=== PATIENT | female | born 1995 | race Two or more races ===

== ENCOUNTER 2020-04-15 13:58 | Emergency (ER) | payer OTHER ==
[~2020-04-15] VITALS: Ht 157.5 cm; Wt 71.2 kg
--- NOTE | 2020-04-15 14:10 | NUR ---
ED Nurse Note: Pt was brought in by ambulance from home d/t 1010 abdominal pain with intensity on the RT side below rib going on for 2 weeks and nausea and vomiting x 1 week. Per pt, she was seen multiple times on different facilities for more than a week but the symtoms are not getting any better. Pt is AOx4, VSS, on RA, afebrile on triage. placed on bed.
[2020-04-15] MEDS ORDERED: Lidocaine 2% Visc 15ml soln ORAL ONE (14:15)
[2020-04-15] MEDS ORDERED: Dicyclomine 10mg Cap ORAL ONE (14:15)
[2020-04-15] MEDS ORDERED: Ketorolac 30mg Inj IV ONE (14:15)
[2020-04-15] MEDS ORDERED: Mylanta II UD 30ml ORAL ONE (14:15)
--- NOTE | 2020-04-15 14:16 | Emergency Room Report ---
History of Present Illness General Chief Complaint: Abdominal Pain Source: Patient Present Illness HPI 25-year-old female here with right upper quadrant abdominal pain. Patient says that she has had this pain on and off "for 2 years." She says that it has acutely worsened over the past several weeks. Pain is located in the right upper quadrant, sharp in nature, cramping, does not otherwise radiate. She has been to [facility] several times over the past week for this pain for which she has received CTs and ultrasounds and patient told me "1 time it showed sludge, another time it did not show anything." "Nobody can seem to figure out what is going on." Patient says that she has also seen a appeals referee in the past and had an endoscopy that was also negative. Patient says that she was diagnosed with a UTI 2 days ago at [facility] but is not been able to take the antibiotic prescribed due to vomiting. She says that she is vomited several times a day over the past week, nonbilious nonbloody. No fevers, chills, chest pain, palpitation, shortness of breath, back pain, diarrhea, dysuria, hematuria, hematochezia, melena. Says that she is sexually active with her . Denies vaginal discharge or vaginal bleeding says has not had any dysuria. Not sexually active with any other partner. 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 Patient History Last Menstrual Period: unk Nursing Documentation-PMH Hx Cardiac Problems: No Hx Hypertension: No Hx Pacemaker: No Hx Asthma: No Hx COPD: No Hx Diabetes: No Hx Cancer: No Hx Gastrointestinal Problems: Yes - Gastritis Hx Dialysis: No History Of Psychiatric Problem: No Hx Neurological Problems: No Hx Cerebrovascular Accident: No Hx Seizures: No Review of Systems All Other Systems: negative except mentioned in HPI Physical Exam Vital Signs Date Time Temp Pulse Resp B/P (MAP) Pulse Ox O2 Delivery O2 Flow Rate FiO2 04/15/20 14:00 98.4 85 19 112/69 (83) 97 Room Air Sp02 EP Interpretation: reviewed, normal General Appearance: no apparent distress, alert, GCS 15, non-toxic Head: normocephalic, atraumatic Eyes: bilateral eye normal inspection, bilateral eye PERRL ENT: hearing grossly normal, normal pharynx, no angioedema, normal voice Neck: full range of motion, supple/symm/no masses Respiratory: chest non-tender, lungs clear, normal breath sounds, speaking full sentences Cardiovascular #1: regular rate, rhythm, no edema Cardiovascular #2: 2+ carotid (R), 2+ carotid (L), 2+ radial (R), 2+ radial (L) , 2+ dorsalis pedis (R), 2+ dorsalis pedis (L) Gastrointestinal: normal bowel sounds, soft, non-distended, no guarding, no rebound, other - Mild right upper quadrant tenderness on palpation. Positive Hudson sign. Negative Rovsing sign. No distention or guarding. Non-tympanic. No other abdominal pain Rectal: deferred Genitourinary: normal inspection, no CVA tenderness Musculoskeletal: back normal, normal range of motion, calf tenderness, gait/ station normal, non-tender Neurologic: alert, motor strength/tone normal, oriented x3, sensory intact, responsive, speech normal Psychiatric: judgement/insight normal, memory normal, mood/affect normal, no suicidal/homicidal ideation Reflexes: 3+ bicep (R), 3+ bicep (L), 3+ tricep (R), 3+ tricep (L), 3+ knee (R) , 3+ knee (L) Lymphatic: no adenopathy Medical Decision Making Diagnostic Impression: Primary Impression: Abdominal pain ER Course Laboratory Tests Test 04/15/20 14:20 White Blood Count 11.8 K/UL (4.8-10.8) H Red Blood Count 4.88 M/UL (4.20-5.40) Hemoglobin 15.4 G/DL (12.0-16.0) Hematocrit 44.3 % (37.0-47.0) Mean Corpuscular Volume 91 FL (80-99) Mean Corpuscular Hemoglobin 31.5 PG (27.0-31.0) H Mean Corpuscular Hemoglobin Concent 34.8 G/DL (32.0-36.0) Red Cell Distribution Width 10.8 % (11.6-14.8) L Platelet Count 358 K/UL (150-450) Mean Platelet Volume 6.1 FL (6.5-10.1) L Neutrophils (%) (Auto) 76.9 % (45.0-75.0) H Lymphocytes (%) (Auto) 14.9 % (20.0-45.0) L Monocytes (%) (Auto) 6.0 % (1.0-10.0) Eosinophils (%) (Auto) 0.0 % (0.0-3.0) Basophils (%) (Auto) 2.2 % (0.0-2.0) H Urine Color Yellow Urine Appearance Slightly cloudy Urine pH 6 (4.5-8.0) Urine Specific [place] 1.025 (1.005-1.035) Urine Protein 2+ (NEGATIVE) H Urine Glucose (UA) Negative (NEGATIVE) Urine Ketones 4+ (NEGATIVE) H Urine Blood 1+ (NEGATIVE) H Urine Nitrite Negative (NEGATIVE) Urine Bilirubin Negative (NEGATIVE) Urine Urobilinogen 1 MG/DL (0.0-1.0) H Urine Leukocyte Esterase 2+ (NEGATIVE) H Urine RBC 0-2 /HPF (0 - 2) Urine WBC 2-4 /HPF (0 - 2) Urine Squamous Epithelial Cells Moderate /LPF (NONE/OCC) H Urine Bacteria Few /HPF (NONE) Urine HCG, Qualitative Negative (NEGATIVE) Sodium Level 136 MMOL/L (136-145) Potassium Level 3.7 MMOL/L (3.5-5.1) Chloride Level 99 MMOL/L (98-107) Carbon Dioxide Level 23 MMOL/L (21-32) Anion Gap 14 mmol/L (5-15) Blood Urea Nitrogen 10 mg/dL (7-18) Creatinine 0.7 MG/DL (0.55-1.30) Estimated Glomerular Filtration Rate > 60 mL/min (>60) Glucose Level 98 MG/DL (74-106) Calcium Level 9.2 MG/DL (8.5-10.1) Total Bilirubin 0.9 MG/DL (0.2-1.0) Aspartate Amino Transferase (AST) 11 U/L (15-37) L Alanine Aminotransferase (ALT) 17 U/L (12-78) Alkaline Phosphatase 58 U/L (46-116) Total Protein 8.1 G/DL (6.4-8.2) Albumin 4.3 G/DL (3.4-5.0) Globulin 3.8 g/dL Albumin/Globulin Ratio 1.1 (1.0-2.7) Lipase 94 U/L (73-393) Procedure: US ABD Complete Indication: Reason For Exam: PAIN Technique: Whalen-scale and duplex images of the upper abdomen were obtained Comparison: Findings: Gallbladder is unremarkable, without stones, wall thickening, nor pericholecystic fluid. Sonographic Hudson's sign is negative. Common bile duct measures to mm in diameter. No intrahepatic biliary ductal dilatation. Liver demonstrates normal echogenicity, no focal abnormality. Portal vein and hepatic veins are patent. Pancreas is unremarkable. Spleen is unremarkable. Left kidney measures 11.8 cm in length. Right kidney measures 11.6 cm length. Both kidneys demonstrate normal echogenicity. There is no hydronephrosis. No focal abnormality . Non-aneurysmal abdominal aorta . Impression: Negative Ddx: Hernia, bladder or kidney stones, diverticulitis, enteritis, appendicitis, genital pathology 25-year-old female with history of chronic abdominal pain here with right upper quadrant abdominal pain. Patient was hemodynamically stable in the emergency department and had completely normal vital signs. She was nontoxic-appearing. Right upper quadrant ultrasound did not reveal any acute abnormalities. CBC, CMP unremarkable. Lipase negative. Patient was given several doses of pain medication with good resolution of her pain. Patient had been seen at [facility] several times over the past week and received a CT scan which the patient said was completely unremarkable. Urinalysis revealed evidence of infection. Patient was given 1 dose of ceftriaxone in the emergency department. She was given prescription for doxycycline as UTI versus other pathology such as Dago-Scot[place] Kevin syndrome or PID were on the differential diagnosis. Patient refused pelvic exam she will follow-up with her primary care physician. She also has a appeals referee who was recently performed an endoscopy and colonoscopy which the patient claims were negative. She will reach out to that physician as well. Discharged in stable condition. Last Vital Signs Date Time Temp Pulse Resp B/P (MAP) Pulse Ox O2 Delivery O2 Flow Rate FiO2 04/15/20 14:00 98.4 85 19 112/69 (83) 97 Room Air Scripts Dicyclomine Hcl (DICYCLOMINE HCL) 20 Mg Tablet 20 MG PO BID, #10 TAB Prov: Buck Guaman M.D. 04/15/20 Metoclopramide Hcl* (REGLAN*) 10 Mg Tablet 10 MG ORAL THREE TIMES A DAY, #21 TAB Prov: Buck Guaman M.D. 04/15/20 Doxycycline Monohydrate* (DOXYCYCLINE MONOHYDRATE*) 100 Mg Capsule 100 MG ORAL Q12H, #14 CAP 0 Refills Prov: Buck Guaman M.D. 04/15/20 Buck Guaman M.D. Apr 15, 2020 14:16
--- NOTE | 2020-04-15 14:34 | NUR ---
ED Nurse Note: us tech at bedside.
[2020-04-15 14:36] VITALS: BP 112/69
[2020-04-15 14:42] LABS: APPEARANCE,URINE SLIGHTLY CLOUDY; BILIRUBIN, URINE NEGATIVE (NEGATIVE); GLUCOSE, URINE (UA) NEGATIVE (NEGATIVE); KETONES,URINE 4+ (NEGATIVE); LEUKOCYTE ESTERASE ,URINE 2+ (NEGATIVE); NITRITE,URINE NEGATIVE (NEGATIVE); PH,URINE 6 (4.5-8.0); PROTEIN,URINE 2+ (NEGATIVE); UROBILINOGEN,URINE 1 MG/DL (0.0-1.0)
[2020-04-15 14:44] LABS: COLOR,URINE YELLOW
[2020-04-15 14:49] LABS: BASOPHILS % (AUTO) 2.2 % (0.0-2.0); HEMATOCRIT 44.3 % (37.0-47.0); HEMOGLOBIN 15.4 G/DL (12.0-16.0); LYMPHOCYTES % (AUTO) 14.9 % (20.0-45.0); MEAN CORPUSCULAR VOLUME 91 FL (80-99); NEUTROPHILS % (AUTO) 76.9 % (45.0-75.0); PLATELET COUNT 358 K/UL (150-450); RED BLOOD COUNT 4.88 M/UL (4.20-5.40); RED CELL DISTRIBUTION WIDTH 10.8 % (11.6-14.8); WHITE BLOOD COUNT 11.8 K/UL (4.8-10.8)
[2020-04-15 15:00] LABS: ANION GAP 14 mmol/L (5-15); BLOOD UREA NITROGEN 10 mg/dL (7-18); CALCIUM 9.2 MG/DL (8.5-10.1); CARBON DIOXIDE 23 MMOL/L (21-32); CHLORIDE 99 MMOL/L (98-107); CREATININE 0.7 MG/DL (0.55-1.30); POTASSIUM 3.7 MMOL/L (3.5-5.1); SODIUM 136 MMOL/L (136-145)
[2020-04-15] MEDS ORDERED: cefTRIAXone 1 GM in NS 55 ML IVPB ONE (15:00)
[2020-04-15 15:05] LABS: ALANINE AMINOTRANSFERASE 17 U/L (12-78); ALBUMIN 4.3 G/DL (3.4-5.0); ALBUMIN/GLOBULIN RATIO 1.1 (1.0-2.7); ALKALINE PHOSPHATASE 58 U/L (46-116); ASPARTATE AMINO TRANSFERASE 11 U/L (15-37); BILIRUBIN,TOTAL 0.9 MG/DL (0.2-1.0)
[2020-04-15] MEDS ORDERED: Morphine Sulfate 4mg/ml Inj (IV USE ONLY) IVP ONE (15:15)
--- NOTE | 2020-04-15 16:00 | Diagnostic Imaging Report ---
Indication: Reason For Exam: PAIN Technique: Whalen-scale and duplex images of the upper abdomen were obtained Comparison: Findings: Gallbladder is unremarkable, without stones, wall thickening, nor pericholecystic fluid. Sonographic Hudson's sign is negative. Common bile duct measures to mm in diameter. No intrahepatic biliary ductal dilatation. Liver demonstrates normal echogenicity, no focal abnormality. Portal vein and hepatic veins are patent. Pancreas is unremarkable. Spleen is unremarkable. Left kidney measures 11.8 cm in length. Right kidney measures 11.6 cm length. Both kidneys demonstrate normal echogenicity. There is no hydronephrosis. No focal abnormality . Non-aneurysmal abdominal aorta . Impression: Negative
[2020-04-15] MEDS ORDERED: DOXYCYCLINE MO100 MG ORAL (16:09)
[2020-04-15] MEDS ORDERED: DICYCLOMINE HCL20 M1 PO (16:09)
[2020-04-15] MEDS ORDERED: REGLAN10 MG ORAL (16:09)
[2020-04-15 16:24] VITALS: BP 114/72
--- NOTE | 2020-04-15 16:24 | NUR ---
ER DISCHARGE NOTE: Patient is cleared to be discharged per ERMD, pt is aox4, on room air, with stable vital signs. pt was given dc and prescription instructions, pt was able to verbalize understanding, pt id band and iv site removed without complications. pt is able to ambulate with steady gait. pt took all belongings.
[2020-04-16] MEDS ORDERED: MYLANTA MAXIMU355 ML PO (06:50)
[2020-04-16] MEDS ORDERED: TYLENOL325 MG ORAL (06:50)
[2020-04-16] MEDS ORDERED: FAMOTIDINE20 MG ORAL (06:50)
[2020-04-17] MEDS ORDERED: HYDROCODON-ACE1 EA15 ORAL (23:44)
== END 2020-04-15 16:24 | disposition home or self-care (01) ==
LOC: EDBD 13:58 → EMR 14:15
DX: R10.11 Right upper quadrant pain (principal)
CPT/HCPCS: 36415; 76700; 80053; 81003; 81025; 83690; 85025; 96365; 96375; J0696; J1885; J2270; J2405; Z7502; 99284

== ENCOUNTER 2020-06-22 11:43 | Emergency (ER) | payer OTHER ==
[~2020-06-22] VITALS: Ht 157.5 cm; Wt 70.8 kg
[~2020-06-22 11:43] MED LIST: DICYCLOMINE HCL20 M1 PO; DOXYCYCLINE MO100 MG ORAL; FAMOTIDINE20 MG ORAL; HYDROCODON-ACE1 EA15 ORAL; MYLANTA MAXIMU355 ML PO; REGLAN10 MG ORAL; TYLENOL325 MG ORAL
[2020-06-22 11:51] VITALS: BP 136/76
[2020-06-22] MEDS ORDERED: Morphine Sulfate 4mg/ml Inj (IV USE ONLY) IVP ONE ×4 (12:15→16:45)
[2020-06-22 12:38] LABS: APPEARANCE,URINE VERY CLOUDY; BILIRUBIN, URINE NEGATIVE (NEGATIVE); GLUCOSE, URINE (UA) NEGATIVE (NEGATIVE); NITRITE,URINE NEGATIVE (NEGATIVE); PH,URINE 5 (4.5-8.0); UROBILINOGEN,URINE NORMAL MG/DL (0.0-1.0)
[2020-06-22 12:43] LABS: HEMATOCRIT 41.2 % (37.0-47.0); HEMOGLOBIN 14.1 G/DL (12.0-16.0); MEAN CORPUSCULAR VOLUME 93 FL (80-99); PLATELET COUNT 409 K/UL (150-450); RED BLOOD COUNT 4.45 M/UL (4.20-5.40); RED CELL DISTRIBUTION WIDTH 11.6 % (11.6-14.8); WHITE BLOOD COUNT 11.7 K/UL (4.8-10.8)
[2020-06-22 12:47] LABS: ANION GAP 12 mmol/L (5-15); BLOOD UREA NITROGEN 10 mg/dL (7-18); CARBON DIOXIDE 23 MMOL/L (21-32); CHLORIDE 104 MMOL/L (98-107); CREATININE 0.7 MG/DL (0.55-1.30); POTASSIUM 3.6 MMOL/L (3.5-5.1); SODIUM 139 MMOL/L (136-145)
[2020-06-22 12:52] LABS: ALANINE AMINOTRANSFERASE 14 U/L (12-78); ALBUMIN 4.5 G/DL (3.4-5.0); ALBUMIN/GLOBULIN RATIO 1.2 (1.0-2.7); ALKALINE PHOSPHATASE 55 U/L (46-116); ASPARTATE AMINO TRANSFERASE 14 U/L (15-37); BILIRUBIN,TOTAL 0.8 MG/DL (0.2-1.0)
[2020-06-22 12:55] LABS: COLOR,URINE YELLOW; KETONES,URINE 1+ (NEGATIVE); LEUKOCYTE ESTERASE ,URINE 1+ (NEGATIVE); PROTEIN,URINE 1+ (NEGATIVE)
[2020-06-22] MEDS ORDERED: Ketorolac 30mg Inj IV ONE (13:00)
[2020-06-22] MEDS ORDERED: HYDROmorphone 1mg/ml Carpuject IVP ONE ×2 (13:45→14:45)
[2020-06-22 13:46] VITALS: BP 129/74
--- NOTE | 2020-06-22 14:59 | Emergency Room Report ---
History of Present Illness General Chief Complaint: Abdominal Pain Source: Patient Present Illness HPI 25 old female presents for abdominal pain and vomiting. States she has been having this pain on and off for several months now. Does not know why. Has seen multiple specialist. Was seen here numerous times in March for this. Pain is epigastric/right-sided, sharp, 10 out of 10, nonradiating. Notes mult iple episodes of vomiting. Denies chest pain or shortness of breath. States she has had EGD done and swallow studies done which were inconclusive. No other aggravating relieving factors. 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 COVID-19 Screening: Negative COVID-19 COVID-19 Testing Source: [place] Patient History Past Medical History: GERD Past Surgical History: none Pertinent Family History: none Social History: Denies: smoking, alcohol use, drug use Last Menstrual Period: 05/05/20 Now: No Immunizations: UTD Reviewed Nursing Documentation: PMH: Agreed; PSxH: Agreed Nursing Documentation-PMH Hx Cardiac Problems: No Hx Hypertension: No Hx Pacemaker: No Hx Asthma: No Hx COPD: No Hx Diabetes: No Hx Cancer: No Hx Gastrointestinal Problems: Yes - gastritis Hx Dialysis: No Hx Neurological Problems: No Hx Cerebrovascular Accident: No Hx Seizures: No Review of Systems All Other Systems: negative except mentioned in HPI Physical Exam Vital Signs Date Time Temp Pulse Resp B/P (MAP) Pulse Ox O2 Delivery O2 Flow Rate FiO2 06/22/20 11:51 80 19 Room Air 06/22/20 11:51 98.4 136/76 (96) 95 Sp02 EP Interpretation: reviewed, normal General Appearance: alert, GCS 15, non-toxic, mild distress Head: normocephalic, atraumatic Eyes: bilateral eye normal inspection, bilateral eye PERRL ENT: hearing grossly normal, normal pharynx, no angioedema, normal voice Neck: full range of motion, supple/symm/no masses Respiratory: chest non-tender, lungs clear, normal breath sounds, speaking full sentences Cardiovascular #1: regular rate, rhythm, no edema Cardiovascular #2: 2+ carotid (R), 2+ carotid (L), 2+ radial (R), 2+ radial (L), 2+ dorsalis pedis (R), 2+ dorsalis pedis (L) Gastrointestinal: normal bowel sounds, soft, non-distended, no guarding, no rebound, tenderness Rectal: deferred Genitourinary: normal inspection, no CVA tenderness Musculoskeletal: back normal, normal range of motion, gait/station normal, non- tender Neurologic: alert, motor strength/tone normal, oriented x3, sensory intact, responsive, speech normal Psychiatric: judgement/insight normal, memory normal, mood/affect normal, no suicidal/homicidal ideation Reflexes: 3+ bicep (R), 3+ bicep (L), 3+ tricep (R), 3+ tricep (L), 3+ knee (R), 3+ knee (L) Skin: no rash Lymphatic: no adenopathy Medical Decision Making Diagnostic Impression: Primary Impression: Intractable abdominal pain ER Course Hospital Course 25-year-old female presents with right upper quadrant pain and vomiting Differential diagnoses include: BPH, cystitis, pyelonephritis, kidney stone Clinical course Patient placed on stretcher. school bus monitor. After initial history and physical I ordered labs, IV fluids, UA, pain medication and ABD US Labs - minimal leukocytosis, Hb/Hct stable. electrolytes ok. UA negative. UDS positive THC Ultrasound shows no acute process Continues to have pain. Pain not resolved after Toradol, morphine x2, Dilaudid x2. I believe patient will require admission Because of insurance patient will be transferred I feel this is a highly complex case requiring extensive working including EKG/Rhythm strip, Xray/CT/US, Blood/urine lab work, repeat exams while in ED, and administration of strong opiates/narcotics for pain control, admission to hospital or close patient follow up. Diagnosis - intractable abd pain Patient transferred in serious condition Laboratory Tests Test 06/22/20 12:00 06/22/20 12:11 Urine Color Yellow Urine Appearance Very cloudy Urine pH 5 (4.5-8.0) Urine Specific [place] 1.020 (1.005-1.035) Urine Protein 1+ (NEGATIVE) H Urine Glucose (UA) Negative (NEGATIVE) Urine Ketones 1+ (NEGATIVE) H Urine Blood 1+ (NEGATIVE) H Urine Nitrite Negative (NEGATIVE) Urine Bilirubin Negative (NEGATIVE) Urine Urobilinogen Normal MG/DL (0.0-1.0) Urine Leukocyte Esterase 1+ (NEGATIVE) H Urine RBC 0-2 /HPF (0 - 2) Urine WBC 0-2 /HPF (0 - 2) Urine Squamous Epithelial Cells Few /LPF (NONE/OCC) Urine Amorphous Sediment Many /LPF (NONE) H Urine Bacteria Few /HPF (NONE) Urine HCG, Qualitative Negative (NEGATIVE) Urine Opiates Screen Negative (NEGATIVE) Urine Barbiturates Screen Negative (NEGATIVE) Phencyclidine (PCP) Screen Negative (NEGATIVE) Urine Amphetamines Screen Negative (NEGATIVE) Urine Benzodiazepines Screen Negative (NEGATIVE) Urine Cocaine Screen Negative (NEGATIVE) Urine Marijuana (THC) Screen Positive (NEGATIVE) H White Blood Count 11.7 K/UL (4.8-10.8) H Red Blood Count 4.45 M/UL (4.20-5.40) Hemoglobin 14.1 G/DL (12.0-16.0) Hematocrit 41.2 % (37.0-47.0) Mean Corpuscular Volume 93 FL (80-99) Mean Corpuscular Hemoglobin 31.7 PG (27.0-31.0) H Mean Corpuscular Hemoglobin Concent 34.2 G/DL (32.0-36.0) Red Cell Distribution Width 11.6 % (11.6-14.8) Platelet Count 409 K/UL (150-450) Mean Platelet Volume 6.3 FL (6.5-10.1) L Neutrophils (%) (Auto) % (45.0-75.0) Lymphocytes (%) (Auto) % (20.0-45.0) Monocytes (%) (Auto) % (1.0-10.0) Eosinophils (%) (Auto) % (0.0-3.0) Basophils (%) (Auto) % (0.0-2.0) Differential Total Cells Counted 100 Neutrophils % (Manual) 86 % (45-75) H Lymphocytes % (Manual) 11 % (20-45) L Monocytes % (Manual) 3 % (1-10) Eosinophils % (Manual) 0 % (0-3) Basophils % (Manual) 0 % (0-2) Band Neutrophils 0 % (0-8) Platelet Estimate Adequate Platelet Morphology Normal Red Blood Cell Morphology Normal Sodium Level 139 MMOL/L (136-145) Potassium Level 3.6 MMOL/L (3.5-5.1) Chloride Level 104 MMOL/L (98-107) Carbon Dioxide Level 23 MMOL/L (21-32) Anion Gap 12 mmol/L (5-15) Blood Urea Nitrogen 10 mg/dL (7-18) Creatinine 0.7 MG/DL (0.55-1.30) Estimat Glomerular Filtration Rate > 60 mL/min (>60) Glucose Level 120 MG/DL (74-106) H Calcium Level 9.0 MG/DL (8.5-10.1) Total Bilirubin 0.8 MG/DL (0.2-1.0) Aspartate Amino Transf (AST/SGOT) 14 U/L (15-37) L Alanine Aminotransferase (ALT/SGPT) 14 U/L (12-78) Alkaline Phosphatase 55 U/L (46-116) Total Protein 8.3 G/DL (6.4-8.2) H Albumin 4.5 G/DL (3.4-5.0) Globulin 3.8 g/dL Albumin/Globulin Ratio 1.2 (1.0-2.7) Lipase 59 U/L (73-393) L CT/MRI/US Diagnostic Results CT/MRI/US Diagnostic Results : Imaging Test Ordered: Abd US Impression Procedure: US ABD Complete Indication: Abdominal pain, vomiting, leukocytosis Technique: Whalen-scale and duplex images of the upper abdomen were obtained Comparison: 04/15/2020 Findings: Gallbladder is unremarkable, without stones, wall thickening, nor pericholecystic fluid. Sonographic Hudson's sign is negative. Common bile duct measures 3 mm in diameter. No intrahepatic biliary ductal dilatation. Liver demonstrates normal echogenicity, no focal abnormality. Portal vein and hepatic veins are patent. Pancreas is unremarkable. Spleen is unremarkable. Left kidney measures 11.2 cm in length. Right kidney measures 10.4 cm length. Both kidneys demonstrate normal echogenicity. There is no hydronephrosis. No focal abnormality . Non-aneurysmal abdominal aorta . No significant change Impression: Negative Last Vital Signs Date Time Temp Pulse Resp B/P (MAP) Pulse Ox O2 Delivery O2 Flow Rate FiO2 06/22/20 13:46 98.0 83 16 129/74 98 Room Air Status: improved Disposition: SHORT-TERM HOSP Condition: Serious Referrals: [facility],REFERRING (PCP) Eric Benavides MD Jun 22, 2020 14:59
[2020-06-22 15:45] VITALS: BP 106/71
--- NOTE | 2020-06-22 15:48 | Diagnostic Imaging Report ---
Indication: Abdominal pain, vomiting, leukocytosis Technique: Whalen-scale and duplex images of the upper abdomen were obtained Comparison: 04/15/2020 Findings: Gallbladder is unremarkable, without stones, wall thickening, nor pericholecystic fluid. Sonographic Hudson's sign is negative. Common bile duct measures 3 mm in diameter. No intrahepatic biliary ductal dilatation. Liver demonstrates normal echogenicity, no focal abnormality. Portal vein and hepatic veins are patent. Pancreas is unremarkable. Spleen is unremarkable. Left kidney measures 11.2 cm in length. Right kidney measures 10.4 cm length. Both kidneys demonstrate normal echogenicity. There is no hydronephrosis. No focal abnormality . Non-aneurysmal abdominal aorta . No significant change Impression: Negative
[2020-06-22 17:47] VITALS: BP 102/68
[2020-06-22 20:05] VITALS: BP 97/81
== END 2020-06-22 20:05 | disposition short-term general hospital (02) ==
LOC: EMR 12:28
DX: R10.13 Epigastric pain (principal); R11.10 Vomiting, unspecified
CPT/HCPCS: 36415; 76700; 80053; 80307; 81003; 81025; 83690; 85007; 85025; 96361; 96374; 96375; 96376; J1170; J1885; J2270; J2405; J7030; S0028; U0002; Z7502; 99285

== ENCOUNTER 2020-06-27 21:23 | Emergency (ER) | payer OTHER ==
[~2020-06-27] VITALS: Ht 157.5 cm; Wt 68.0 kg
[2020-06-27 21:30] VITALS: BP 161/100
--- NOTE | 2020-06-27 21:30 | NUR ---
ED Nurse Note: PT AMBULATED TO ED FROM HOME C/O N/V/D FOR SEVERAL DAYS WITH 10/10 ABDOMINAL PAIN. PT WAS SEEN RECENTLY FOR THE SAME SYMPTOMS, DIAGNOSED WITH IBS. PT IS A&OX4, VSS EXCEPT FOR BP 160/100 R/T PAIN, PT IS ACTIVELY VOMITING.
--- NOTE | 2020-06-27 21:59 | Emergency Room Report ---
History of Present Illness General Chief Complaint: Abdominal Pain Source: Patient Present Illness HPI Disclaimer: Please note that this report is being documented using DRAGON technology. This can lead to erroneous entry secondary to incorrect interpretation by the dictating instrument. HPI: This 25-year-old female with new diagnosis of IBS presenting for evaluation of abdominal pain. Symptoms began this morning. She reports multiple rounds of nonbloody emesis and profuse abdominal cramping. Denies fever or chills. She has been taking Protonix, Bentyl, Tylenol with mild improvement. Also experienced some loose bowel movements this morning but these have resolved. Patient states this is consistent with her prior episodes of abdominal pain which she has presented to this facility multiple times. She has had 2 - gallbladder ultrasounds at this facility and reports a negative HIDA scan at a different facility. Reports recent CT scan at [facility] which was also interpreted as negative. Also states she had an EGD which was negative and follows with acquisitions analyst. Has not had a colonoscopy. History of appendectomy. Denies alcohol, tobacco or drug use. Currently on her menses. PMH: Interval bowel syndrome PSH: Appendectomy Allergies: Denied Social Hx: Denied alcohol, tobacco, drug use. States she quit marijuana months ago Allergies: Coded Allergies: No Known Allergies (Unverified , 04/15/20) COVID-19 Screening Contact w/high risk pt: No Experienced COVID-19 symptoms?: Yes COVID-19 Testing performed RECONDITIONING ASSOCIATE: No Patient History Last Menstrual Period: 06/27/20 Now: No : 1 Para: 0 Nursing Documentation-PMH Hx Cardiac Problems: No Hx Hypertension: No Hx Pacemaker: No Hx Asthma: No Hx COPD: No Hx Diabetes: No Hx Cancer: No Hx Gastrointestinal Problems: Yes - gastritis Hx Dialysis: No Hx Neurological Problems: No Hx Cerebrovascular Accident: No Hx Seizures: No Review of Systems All Other Systems: negative except mentioned in HPI Physical Exam Vital Signs Date Time Temp Pulse Resp B/P (MAP) Pulse Ox O2 Delivery O2 Flow Rate FiO2 06/27/20 21:30 97.3 86 22 161/100 (120) 96 Room Air General: Awake and alert, appears uncomfortable, vomit bag with clear emesis at bedside HEENT: NC/AT. EOMI. Cardiovascular: RRR. S1 and S2 normal. No murmur appreciated Resp: Normal work of breathing. No cough, wheezing or crackles appreciated Abdomen: Abdomen is soft, nondistended. Tenderness palpation in the epigastric and right upper quadrant. No guarding. No peritoneal signs. No rebound. Negative Hudson's. No flank tenderness. Skin: Intact. No abrasions, laceration or rash over the exposed skin MSK: Normal tone and bulk. Moving all extremities. No obvious deformity. Neuro: Awake and alert. Mentating appropriately. Medical Decision Making Diagnostic Impression: Primary Impression: Abdominal pain ER Course Is a 25-year-old female presenting for evaluation of abdominal pain. Differential includes was not limited to gastritis, gastroenteritis, pancreatitis, cholecystitis, choledocholithiasis, hepatitis, mesenteric ischemia, dehydration, IBS, cyclic vomiting syndrome, inflammatory bowel disease, nephrolithiasis, UTI, pyelonephritis to name a few. Patient given IV fluids, antacids, antiemetics. Patient initially received morphine but requested more pain medication. She declined a second dose of morphine stating that morphine has been ineffective. She states she is only treated with Dilaudid when she is in the hospital. Patient is tested positive for THC as she has on prior visit. May be cyclic vomiting syndrome. She refused Haldol stating it makes her feel sweaty. Patient also tested positive for opiates. Urine sample was obtained prior to the patient receiving IV morphine here in the ED. May be opiate withdrawal. 0015: Patient found sleeping comfortably in room. No emesis in the ED. Labs returned within normal limits aside for positive results on tox screen for marijuana and opiates. Urinalysis has red cells however the patient is currently on her menses. No findings on CT aside from priorly reported appendectomy. Patient stable for outpatient follow-up. Will discharge when awake. Laboratory Tests Test 06/27/20 22:05 06/27/20 22:30 White Blood Count 9.6 K/UL (4.8-10.8) Red Blood Count 4.47 M/UL (4.20-5.40) Hemoglobin 14.0 G/DL (12.0-16.0) Hematocrit 41.4 % (37.0-47.0) Mean Corpuscular Volume 93 FL (80-99) Mean Corpuscular Hemoglobin 31.3 PG (27.0-31.0) H Mean Corpuscular Hemoglobin Concent 33.7 G/DL (32.0-36.0) Red Cell Distribution Width 11.5 % (11.6-14.8) L Platelet Count 391 K/UL (150-450) Mean Platelet Volume 6.2 FL (6.5-10.1) L Neutrophils (%) (Auto) 65.6 % (45.0-75.0) Lymphocytes (%) (Auto) 27.6 % (20.0-45.0) Monocytes (%) (Auto) 5.1 % (1.0-10.0) Eosinophils (%) (Auto) 0.6 % (0.0-3.0) Basophils (%) (Auto) 1.2 % (0.0-2.0) Sodium Level 143 MMOL/L (136-145) Potassium Level 3.1 MMOL/L (3.5-5.1) L Chloride Level 107 MMOL/L (98-107) Carbon Dioxide Level 22 MMOL/L (21-32) Anion Gap 14 mmol/L (5-15) Blood Urea Nitrogen 7 mg/dL (7-18) Creatinine 0.7 MG/DL (0.55-1.30) Estimated Glomerular Filtration Rate > 60 mL/min (>60) Glucose Level 113 MG/DL (74-106) H Calcium Level 8.8 MG/DL (8.5-10.1) Total Bilirubin 0.3 MG/DL (0.2-1.0) Aspartate Amino Transferase (AST) 12 U/L (15-37) L Alanine Aminotransferase (ALT) 16 U/L (12-78) Alkaline Phosphatase 52 U/L (46-116) Total Protein 8.3 G/DL (6.4-8.2) H Albumin 4.6 G/DL (3.4-5.0) Globulin 3.7 g/dL Albumin/Globulin Ratio 1.2 (1.0-2.7) Lipase 131 U/L (73-393) Serum Alcohol < 3 mg/dL Urine Color Yellow Urine Appearance Slightly cloudy Urine pH 5 (4.5-8.0) Urine Specific [place] 1.025 (1.005-1.035) Urine Protein 1+ (NEGATIVE) H Urine Glucose (UA) Negative (NEGATIVE) Urine Ketones 3+ (NEGATIVE) H Urine Blood 5+ (NEGATIVE) H Urine Nitrite Negative (NEGATIVE) Urine Bilirubin Negative (NEGATIVE) Urine Urobilinogen Normal MG/DL (0.0-1.0) Urine Leukocyte Esterase 1+ (NEGATIVE) H Urine RBC Tntc /HPF (0 - 2) H Urine WBC 2-4 /HPF (0 - 2) Urine Squamous Epithelial Cells Few /LPF (NONE/OCC) Urine Calcium Oxalate Crystals Few /LPF (NONE) Urine Bacteria Few /HPF (NONE) Urine HCG, Qualitative Negative (NEGATIVE) Urine Opiates Screen Positive (NEGATIVE) H Urine Barbiturates Screen Negative (NEGATIVE) Phencyclidine (PCP) Screen Negative (NEGATIVE) Urine Amphetamines Screen Negative (NEGATIVE) Urine Benzodiazepines Screen Negative (NEGATIVE) Urine Cocaine Screen Negative (NEGATIVE) Urine Marijuana (THC) Screen Positive (NEGATIVE) H CT/MRI/US Diagnostic Results CT/MRI/US Diagnostic Results : Impression Final Report EXAM: CT Abdomen and Pelvis With Intravenous Contrast CLINICAL HISTORY: ABD PAIN TECHNIQUE: Axial computed tomography images of the abdomen and pelvis with intravenous contrast. CTDI is 5.90 mGy and DLP is 311.90 mGy-cm. One or more of the following dose reduction techniques were used: automated exposure control, adjustment of the mA and/or kV according to patient size, use of iterative reconstruction technique. COMPARISON: Abdominal ultrasound dated 06/22/2020. FINDINGS: Lung bases: Unremarkable. No mass. No consolidation. ABDOMEN: Liver: Unremarkable. No mass. Gallbladder and bile ducts: Unremarkable. No calcified stones. No ductal dilation. Pancreas: Unremarkable. No mass. No ductal dilation. Spleen: Unremarkable. No splenomegaly. Adrenals: Unremarkable. No mass. Kidneys and ureters: Unremarkable. No solid mass. No hydronephrosis. Stomach and bowel: Unremarkable. No obstruction. No mucosal thickening. PELVIS: Appendix: Surgical clips within the region of the appendix, suggesting prior appendectomy. Bladder: Unremarkable. No mass. Reproductive: Unremarkable as visualized. ABDOMEN and PELVIS: Intraperitoneal space: Unremarkable. No free air. No significant fluid collection. Bones/joints: No acute fracture. No dislocation. Soft tissues: Unremarkable. Vasculature: Unremarkable. No abdominal aortic aneurysm. Lymph nodes: Unremarkable. No enlarged lymph nodes. IMPRESSION: No acute abnormalities of the abdomen and pelvis. Radiologist: Catarino Harry DO Electronically Signed: 06/28/20 00:15 Study ready at 00:05 and initial results transmitted at 00:15 Last Vital Signs Date Time Temp Pulse Resp B/P (MAP) Pulse Ox O2 Delivery O2 Flow Rate FiO2 06/27/20 21:30 97.3 86 22 161/100 (120) 96 Room Air Disposition: HOME, SELF-CARE Condition: Improved Tiago Pinedo MD Jun 27, 2020 21:58
[2020-06-27] MEDS ORDERED: Omnipaque-300 100ml vial INJ PRN (22:00)
[2020-06-27] MEDS ORDERED: Morphine Sulfate 4mg/ml Inj (IV USE ONLY) IVP ONE ×3 (22:00→23:30)
[2020-06-27] MEDS ORDERED: Mylanta II UD 30ml ORAL ONE (22:15)
[2020-06-27] MEDS ORDERED: Dicyclomine HCl 10mg/5ml oral soln ORAL ONE (22:15)
[2020-06-27] MEDS ORDERED: Lidocaine 2% Visc 15ml soln ORAL ONE (22:15)
[2020-06-27 22:28] LABS: BASOPHILS % (AUTO) 1.2 % (0.0-2.0); EOSINOPHILS % (AUTO) 0.6 % (0.0-3.0); HEMATOCRIT 41.4 % (37.0-47.0); LYMPHOCYTES % (AUTO) 27.6 % (20.0-45.0); MEAN CORPUSCULAR VOLUME 93 FL (80-99); MONOCYTES % (AUTO) 5.1 % (1.0-10.0); NEUTROPHILS % (AUTO) 65.6 % (45.0-75.0); PLATELET COUNT 391 K/UL (150-450); RED BLOOD COUNT 4.47 M/UL (4.20-5.40); RED CELL DISTRIBUTION WIDTH 11.5 % (11.6-14.8); WHITE BLOOD COUNT 9.6 K/UL (4.8-10.8)
[2020-06-27 22:33] LABS: ANION GAP 14 mmol/L (5-15); BLOOD UREA NITROGEN 7 mg/dL (7-18); CALCIUM 8.8 MG/DL (8.5-10.1); CARBON DIOXIDE 22 MMOL/L (21-32); CHLORIDE 107 MMOL/L (98-107); CREATININE 0.7 MG/DL (0.55-1.30); POTASSIUM 3.1 MMOL/L (3.5-5.1); SODIUM 143 MMOL/L (136-145)
[2020-06-27 22:37] LABS: ALANINE AMINOTRANSFERASE 16 U/L (12-78); ALBUMIN 4.6 G/DL (3.4-5.0); ALBUMIN/GLOBULIN RATIO 1.2 (1.0-2.7); ALKALINE PHOSPHATASE 52 U/L (46-116); ASPARTATE AMINO TRANSFERASE 12 U/L (15-37); BILIRUBIN,TOTAL 0.3 MG/DL (0.2-1.0)
[2020-06-27 22:44] LABS: APPEARANCE,URINE SLIGHTLY CLOUDY; BILIRUBIN, URINE NEGATIVE (NEGATIVE); GLUCOSE, URINE (UA) NEGATIVE (NEGATIVE); KETONES,URINE 3+ (NEGATIVE); LEUKOCYTE ESTERASE ,URINE 1+ (NEGATIVE); NITRITE,URINE NEGATIVE (NEGATIVE); PH,URINE 5 (4.5-8.0); PROTEIN,URINE 1+ (NEGATIVE); UROBILINOGEN,URINE NORMAL MG/DL (0.0-1.0)
[2020-06-27] MEDS ORDERED: Haloperidol 5mg/ml Inj IM ONE (22:45)
[2020-06-27 22:54] LABS: COLOR,URINE YELLOW
[2020-06-27] MEDS ORDERED: LORazepam Inj 2mg/ml 1ml IV ONE (23:00)
[2020-06-27] MEDS ORDERED: DiphenhydrAMINE 50mg/ml Inj IVP ONE (23:00)
--- NOTE | 2020-06-27 23:32 | NUR ---
ED Nurse Note: Pt to CT
[2020-06-27 23:45] VITALS: BP 135/78
--- NOTE | 2020-06-27 23:45 | NUR ---
ED Nurse Note: Pt back from CT, resting with eyes closed, non-labored breathing.
--- NOTE | 2020-06-28 00:15 | Diagnostic Imaging Report ---
EXAM: CT Abdomen and Pelvis With Intravenous Contrast CLINICAL HISTORY: ABD PAIN TECHNIQUE: Axial computed tomography images of the abdomen and pelvis with intravenous contrast. CTDI is 5.90 mGy and DLP is 311.90 mGy-cm. One or more of the following dose reduction techniques were used: automated exposure control, adjustment of the mA and/or kV according to patient size, use of iterative reconstruction technique. COMPARISON: Abdominal ultrasound dated 06/22/2020. FINDINGS: Lung bases: Unremarkable. No mass. No consolidation. ABDOMEN: Liver: Unremarkable. No mass. Gallbladder and bile ducts: Unremarkable. No calcified stones. No ductal dilation. Pancreas: Unremarkable. No mass. No ductal dilation. Spleen: Unremarkable. No splenomegaly. Adrenals: Unremarkable. No mass. Kidneys and ureters: Unremarkable. No solid mass. No hydronephrosis. Stomach and bowel: Unremarkable. No obstruction. No mucosal thickening. PELVIS: Appendix: Surgical clips within the region of the appendix, suggesting prior appendectomy. Bladder: Unremarkable. No mass. Reproductive: Unremarkable as visualized. ABDOMEN and PELVIS: Intraperitoneal space: Unremarkable. No free air. No significant fluid collection. Bones/joints: No acute fracture. No dislocation. Soft tissues: Unremarkable. Vasculature: Unremarkable. No abdominal aortic aneurysm. Lymph nodes: Unremarkable. No enlarged lymph nodes. IMPRESSION: No acute abnormalities of the abdomen and pelvis.
[2020-06-28 01:10] VITALS: BP 154/90
--- NOTE | 2020-06-28 01:10 | NUR ---
ER DISCHARGE NOTE: Patient is cleared to be discharged per ERMD, pt is aox4, on room air, with stable vital signs. pt was given dc instructions, pt was able to verbalize understanding, pt id band and iv site removed without complications. pt is able to ambulate with steady gait. pt took all belongings.
== END 2020-06-28 01:10 | disposition home or self-care (01) ==
LOC: EMR 22:25
DX: R10.9 Unspecified abdominal pain (principal); Z90.89 Acquired absence of other organs
CPT/HCPCS: 36415; 74177; 80053; 80307; 81003; 81025; 83690; 85025; 96361; 96374; 96375; 96376; G0480; J1200; J2270; J2405; J7030; Q9965; S0028; Z7502; 99284

== ENCOUNTER 2020-06-30 07:40 | Emergency (ER) | payer OTHER ==
[~2020-06-30] VITALS: Ht 157.5 cm; Wt 68.0 kg
[2020-06-30 07:59] VITALS: BP 152/98
--- NOTE | 2020-06-30 08:04 | NUR ---
ED Nurse Note: Patient walked in to ER from home due to RUQ abd pain for over a week. Patient was admitted to [facility] last week and was discharged with meds pantoprazole 40mg and dicyclomine 20mg. States pain is consistent. Patient presented AAO x4, VSS at this time, has even unlabored breathing.
--- NOTE | 2020-06-30 08:14 | Emergency Room Report ---
History of Present Illness General Chief Complaint: Abdominal Pain Source: Patient Present Illness HPI Patient is a 25-year-old female presents for increased generalized abdominal pain. Reports having intermittent crampy abdominal pain. Had recent hospitalization after persistent pain. Had negative CT imaging in the past 1 week. Denies any hematemesis or bloody stools. Has been taking dicyclomine as well as acid blockers. Reports having multiple ER visits since onset of pain. Denies any fever. Had negative coronavirus testing recently. Pain was severe crampy in nature. Denies any pelvic pain or vaginal discharge. Denies being . She was told previously that she had irritable bowel disease possibly. Allergies: Coded Allergies: HALOPERIDOL (Verified Allergy, Unknown, 06/30/20) METOCLOPRAMIDE (Verified Allergy, Unknown, 06/30/20) COVID-19 Screening Contact w/high risk pt: No Experienced COVID-19 symptoms?: No COVID-19 Testing performed INSULATION MANAGER: No Patient History Past Medical History: see triage record Last Menstrual Period: 06/29/20 Now: No Reviewed Nursing Documentation: PMH: Agreed; PSxH: Agreed Nursing Documentation-PMH Past Medical History: No History, Except For Hx Cardiac Problems: No Hx Hypertension: No Hx Pacemaker: No Hx Asthma: No Hx COPD: No Hx Diabetes: No Hx Cancer: No Hx Gastrointestinal Problems: Yes - gastritis Hx Dialysis: No Hx Neurological Problems: No Hx Cerebrovascular Accident: No Hx Seizures: No Review of Systems All Other Systems: negative except mentioned in HPI Physical Exam Vital Signs Date Time Temp Pulse Resp B/P (MAP) Pulse Ox O2 Delivery O2 Flow Rate FiO2 06/30/20 07:45 98.8 80 16 152/98 (116) 94 Room Air Sp02 EP Interpretation: reviewed, normal General Appearance: normal inspection, well appearing, alert, GCS 15, mild distress Head: atraumatic ENT: normal ENT inspection, hearing grossly normal, normal voice Neck: normal inspection, full range of motion, supple, no bony tend Respiratory: normal inspection, lungs clear, normal breath sounds, no respiratory distress, no retraction, no wheezing Cardiovascular #1: regular rate, rhythm, no edema Gastrointestinal: normal inspection, normal bowel sounds, non tender, soft, no guarding, no hernia Genitourinary: no CVA tenderness Musculoskeletal: normal inspection, back normal, normal range of motion Neurologic: alert, motor strength/tone normal, multiple punch press operator III-XII nml as tested, oriented x3, responsive, speech normal, normal inspection Psychiatric: normal inspection, judgement/insight normal, mood/affect normal Skin: no rash Medical Decision Making Diagnostic Impression: Primary Impression: Abdominal pain ER Course Patient presented for abdominal pain. Differential diagnosis include was not limited to gastroenteritis, irritable bowel disease, peptic ulcer disease among others. Because of complexity of patient's case laboratory tests were ordered.Patient's laboratory testing was unremarkable. Patient had recent CT imaging which did not show any evidence of acute abnormalities. Patient was given multiple medications without any improvement in symptoms. Patient was discussed with Dr. Banuelos who agreed to accept the patient for transfer to [facility]. Laboratory Tests Test 06/30/20 08:30 White Blood Count 7.3 K/UL (4.8-10.8) Red Blood Count 4.72 M/UL (4.20-5.40) Hemoglobin 14.8 G/DL (12.0-16.0) Hematocrit 44.7 % (37.0-47.0) Mean Corpuscular Volume 95 FL (80-99) Mean Corpuscular Hemoglobin 31.2 PG (27.0-31.0) H Mean Corpuscular Hemoglobin Concent 33.0 G/DL (32.0-36.0) Red Cell Distribution Width 11.3 % (11.6-14.8) L Platelet Count 348 K/UL (150-450) Mean Platelet Volume 6.5 FL (6.5-10.1) Neutrophils (%) (Auto) 64.3 % (45.0-75.0) Lymphocytes (%) (Auto) 26.6 % (20.0-45.0) Monocytes (%) (Auto) 7.0 % (1.0-10.0) Eosinophils (%) (Auto) 0.3 % (0.0-3.0) Basophils (%) (Auto) 1.8 % (0.0-2.0) Urine Color Pale yellow Urine Appearance Slightly cloudy Urine pH 8 (4.5-8.0) Urine Specific [place] 1.010 (1.005-1.035) Urine Protein 1+ (NEGATIVE) H Urine Glucose (UA) Negative (NEGATIVE) Urine Ketones Negative (NEGATIVE) Urine Blood 5+ (NEGATIVE) H Urine Nitrite Negative (NEGATIVE) Urine Bilirubin Negative (NEGATIVE) Urine Urobilinogen Normal MG/DL (0.0-1.0) Urine Leukocyte Esterase 1+ (NEGATIVE) H Urine RBC 60-80 /HPF (0 - 2) H Urine WBC 0-2 /HPF (0 - 2) Urine Squamous Epithelial Cells Few /LPF (NONE/OCC) Urine Bacteria Few /HPF (NONE) Urine HCG, Qualitative Negative (NEGATIVE) Sodium Level 138 MMOL/L (136-145) Potassium Level 4.0 MMOL/L (3.5-5.1) Chloride Level 102 MMOL/L (98-107) Carbon Dioxide Level 27 MMOL/L (21-32) Anion Gap 9 mmol/L (5-15) Blood Urea Nitrogen 5 mg/dL (7-18) L Creatinine 0.7 MG/DL (0.55-1.30) Estimated Glomerular Filtration Rate > 60 mL/min (>60) Glucose Level 91 MG/DL (74-106) Calcium Level 9.1 MG/DL (8.5-10.1) Total Bilirubin 0.5 MG/DL (0.2-1.0) Aspartate Amino Transferase (AST) 11 U/L (15-37) L Alanine Aminotransferase (ALT) 11 U/L (12-78) L Alkaline Phosphatase 47 U/L (46-116) Total Protein 7.3 G/DL (6.4-8.2) Albumin 4.4 G/DL (3.4-5.0) Globulin 2.9 g/dL Albumin/Globulin Ratio 1.5 (1.0-2.7) Lipase 97 U/L (73-393) Urine Opiates Screen Negative (NEGATIVE) Urine Barbiturates Screen Negative (NEGATIVE) Phencyclidine (PCP) Screen Negative (NEGATIVE) Urine Amphetamines Screen Negative (NEGATIVE) Urine Benzodiazepines Screen Negative (NEGATIVE) Urine Cocaine Screen Negative (NEGATIVE) Urine Marijuana (THC) Screen Positive (NEGATIVE) H Last Vital Signs Date Time Temp Pulse Resp B/P (MAP) Pulse Ox O2 Delivery O2 Flow Rate FiO2 06/30/20 07:59 80 16 Room Air 06/30/20 07:59 98.8 152/98 94 Status: improved Disposition: SHORT-TERM HOSP Condition: Stable Thomas Singleton MD Jun 30, 2020 08:14
[2020-06-30] MEDS ORDERED: DiphenhydrAMINE 50mg/ml Inj IVP ONE (08:15)
[2020-06-30] MEDS ORDERED: Ketorolac 30mg Inj IV ONE (08:15)
--- NOTE | 2020-06-30 08:41 | NUR ---
ED Nurse Note: IV line was established on right AC 20gaz, blood and urine specimens collected sent to lab
[2020-06-30 09:20] LABS: BASOPHILS % (AUTO) 1.8 % (0.0-2.0); EOSINOPHILS % (AUTO) 0.3 % (0.0-3.0); HEMATOCRIT 44.7 % (37.0-47.0); HEMOGLOBIN 14.8 G/DL (12.0-16.0); LYMPHOCYTES % (AUTO) 26.6 % (20.0-45.0); MEAN CORPUSCULAR VOLUME 95 FL (80-99); NEUTROPHILS % (AUTO) 64.3 % (45.0-75.0); PLATELET COUNT 348 K/UL (150-450); RED BLOOD COUNT 4.72 M/UL (4.20-5.40); RED CELL DISTRIBUTION WIDTH 11.3 % (11.6-14.8); WHITE BLOOD COUNT 7.3 K/UL (4.8-10.8)
[2020-06-30 09:21] LABS: APPEARANCE,URINE SLIGHTLY CLOUDY; BILIRUBIN, URINE NEGATIVE (NEGATIVE); COLOR,URINE PALE YELLOW; GLUCOSE, URINE (UA) NEGATIVE (NEGATIVE); KETONES,URINE NEGATIVE (NEGATIVE); LEUKOCYTE ESTERASE ,URINE 1+ (NEGATIVE); NITRITE,URINE NEGATIVE (NEGATIVE); PH,URINE 8 (4.5-8.0); PROTEIN,URINE 1+ (NEGATIVE); UROBILINOGEN,URINE NORMAL MG/DL (0.0-1.0)
[2020-06-30 09:40] LABS: ANION GAP 9 mmol/L (5-15); BLOOD UREA NITROGEN 5 mg/dL (7-18); CALCIUM 9.1 MG/DL (8.5-10.1); CARBON DIOXIDE 27 MMOL/L (21-32); CHLORIDE 102 MMOL/L (98-107); CREATININE 0.7 MG/DL (0.55-1.30); SODIUM 138 MMOL/L (136-145)
[2020-06-30 09:43] LABS: ALANINE AMINOTRANSFERASE 11 U/L (12-78); ALBUMIN 4.4 G/DL (3.4-5.0); ALBUMIN/GLOBULIN RATIO 1.5 (1.0-2.7); ALKALINE PHOSPHATASE 47 U/L (46-116); ASPARTATE AMINO TRANSFERASE 11 U/L (15-37); BILIRUBIN,TOTAL 0.5 MG/DL (0.2-1.0)
[2020-06-30] MEDS ORDERED: Morphine Sulfate 4mg/ml Inj (IV USE ONLY) IVP ONE ×2 (10:00→11:30)
--- NOTE | 2020-06-30 11:27 | NUR ---
ED Nurse Note: Patient c/o pain 06/04, stated all medications that she recieved not helpfiul.Patient stated, "I need Dilaudid."
--- NOTE | 2020-06-30 13:34 | NUR ---
report was given to JOSE RAMON Pop at [facility] [address]
[2020-06-30] MEDS: Morphine Sulfate 4mg/ml Inj (IV USE ONLY) IVP ONE ×2 (13:51→13:53)
[2020-06-30 14:25] VITALS: BP 152/98
--- NOTE | 2020-06-30 14:25 | NUR ---
AMA: SEE AMA FORM.
--- NOTE | 2020-06-30 14:25 | NUR ---
ED Nurse Note: Patient decided to leave against medical advice at 1425. Patient was requesting pain medicatien, and when nurse bring Morphin she refused it. Patient stated " I need Dilaudid, that the olnly medication that helping me." Patient refused being transfered to [facility]. Patient walked out with steady gait, AAO x4, VSS at this time, patient took all belongings.
== END 2020-06-30 14:25 | disposition short-term general hospital (02) ==
LOC: EMR 08:16
DX: R10.84 Generalized abdominal pain (principal); Z53.29 Procedure and treatment not carried out because of patient's decision for other reasons; Z88.8 Allergy status to other drugs, medicaments and biological substances
CPT/HCPCS: 36415; 80053; 80307; 81003; 81025; 83690; 85025; 86850; 86900; 86901; 96361; 96374; 96375; 96376; J1200; J1885; J2270; J2405; J7030; Z7502; 99284